=== PATIENT | male | born 1995 | race Caucasian/White ===

== ENCOUNTER 2017-08-23 02:08 | Emergency (ER) | payer MEDICAID ==
[~2017-08-23] VITALS: Ht 172.7 cm; Wt 61.5 kg
[~2017-08-23 02:08] MED LIST: LORA-441 PO
[2017-08-23 02:10] VITALS: Ht 172.7 cm; Wt 61.5 kg
[2017-08-23] MEDS ORDERED: DIPHTH/TET/ACEL PERTUSS (ADULT) 0.5 ML VIAL IM* ONE (03:00)
[2017-08-23] MEDS ORDERED: IBUP-1542 PO (03:52)
[2017-08-23] MEDS ORDERED: CEPH-443 PO (03:52)
[2017-08-23] MEDS ORDERED: CEFAZOLIN 1 GM INJ IM ONE (04:00)
[2017-08-23 04:43] VITALS: BP 125/75; PULSE 79; RESP 16
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
== END 2017-08-23 04:44 | disposition home or self-care (01) ==
LOC: FTE 02:08
DX: S01.312A Laceration without foreign body of left ear, initial encounter (principal); F17.210 Nicotine dependence, cigarettes, uncomplicated; Y04.0XXA Assault by unarmed brawl or fight, initial encounter; Z23 Encounter for immunization
CPT/HCPCS: 90471; 90715; 96372; J0690; Z7502

== ENCOUNTER 2017-08-25 08:05 | Emergency (ER) | END 2017-08-25 08:58 | disposition home or self-care (01) | DX: Z48.01 Encounter for change or removal of surgical wound dressing (principal); F17.210 Nicotine dependence, cigarettes, uncomplicated ==

== ENCOUNTER 2018-02-06 18:06 | Emergency (ER) | END 2018-02-06 20:20 | disposition home or self-care (01) ==